=== PATIENT | male | born 1975 | race Caucasian/White ===

== ENCOUNTER 2017-06-28 07:58 | Emergency (ER) | payer SELFPAY ==
[~2017-06-28] VITALS: Ht 160 cm; Wt 79.4 kg
[~2017-06-28 07:58] MED LIST: ALBU90OI INH; ALLEGRA ALLERGY60 MG PO; CYCL10 PO; HYDR1TAB94 PO; NAPR550 PO; Prednisone20 MG PO; TYLENOL PM EX-1 EAC1 PO
[2017-06-28] MEDS ORDERED: CYCL10 PO (08:54)
[2017-06-28] MEDS ORDERED: IBUP800 PO (08:54)
[2017-06-28] MEDS ORDERED: Norco 5-325 Ta1 EACH PO (08:54)
[2017-06-28] MEDS ORDERED: Voltaren100 GM TOP (08:54)
== END 2017-06-28 09:00 | disposition home or self-care (01) ==
LOC: ER 07:58
DX: S16.1XXA Strain of muscle, fascia and tendon at neck level, initial encounter (principal); F17.210 Nicotine dependence, cigarettes, uncomplicated; X58.XXXA Exposure to other specified factors, initial encounter
CPT/HCPCS: 99283

== ENCOUNTER 2017-10-13 14:16 | Emergency (ER) | payer SELFPAY ==
[~2017-10-13] VITALS: Ht 157.5 cm; Wt 77.1 kg
[~2017-10-13 14:16] MED LIST changes: +IBUP800 PO; +Norco 5-325 Ta1 EACH PO; +Voltaren100 GM TOP
[2017-10-13] MEDS ORDERED: ALBU90OI INH (15:16)
[2017-10-13] MEDS ORDERED: Flonase 0.05% N16 GM (15:16)
[2017-10-13] MEDS ORDERED: Alaway10 ML BOTHEYES (15:16)
[2017-10-13] MEDS ORDERED: CLARITIN10 MG PO (15:16)
== END 2017-10-13 15:45 | disposition home or self-care (01) ==
LOC: ER 14:16
DX: J30.9 Allergic rhinitis, unspecified (principal); Z88.8 Allergy status to other drugs, medicaments and biological substances; Z79.899 Other long term (current) drug therapy; F17.210 Nicotine dependence, cigarettes, uncomplicated
CPT/HCPCS: 99283

== ENCOUNTER 2018-05-25 07:49 | Emergency (ER) | payer SELFPAY ==
[~2018-05-25] VITALS: Ht 157.5 cm; Wt 77.1 kg
[~2018-05-25 07:49] MED LIST changes: +Alaway10 ML BOTHEYES; +CLARITIN10 MG PO; +Flonase 0.05% N16 GM
[2018-05-25] MEDS ORDERED: Percocet 5-3251 EACH PO (08:23)
[2018-05-25] MEDS ORDERED: IBUP400 PO (08:23)
[2018-05-25] MEDS ORDERED: Cyclobenzaprine5 MG PO (08:23)
== END 2018-05-25 08:38 | disposition home or self-care (01) ==
LOC: ER 07:49
DX: M54.5 Low back pain (principal); M53.3 Sacrococcygeal disorders, not elsewhere classified; F17.210 Nicotine dependence, cigarettes, uncomplicated
CPT/HCPCS: 99282

== ENCOUNTER 2019-07-26 14:04 | Emergency (ER) | payer SELFPAY ==
[~2019-07-26] VITALS: Ht 157.5 cm; Wt 72.6 kg
[~2019-07-26 14:04] MED LIST changes: +Cyclobenzaprine5 MG PO; +IBUP400 PO; +Percocet 5-3251 EACH PO
[2019-07-26 14:55] LABS: BASOPHILS ABSOLUTE AUTO 0.06 K/mm3 (0.00-0.23); BASOPHILS PERCENT AUTO 1 % (0-2); EOSINOPHILS ABSOLUTE AUTO 0.24 K/mm3 (0.00-0.68); EOSINOPHILS PERCENT AUTO 2 % (0-6); Hematocrit 46.5 % (37.0-53.0); Hemoglobin 15.5 g/dL (13.5-17.5); IMMATURE GRAN ABSOLUTE AUTO 0.03 K/mm3 (0.00-0.10); IMMATURE GRAN PERCENT AUTO 0 % (0-1); LYMPHOCYTES ABSOLUTE AUTO 4.19 K/mm3 (0.84-5.20); LYMPHOCYTES PERCENT AUTO 38 % (21-46); MONOCYTES ABSOLUTE AUTO 0.78 K/mm3 (0.16-1.47); MONOCYTES PERCENT AUTO 7 % (4-13); Mean Corpuscular HGB 29.5 pg (26.0-34.0); Mean Corpuscular HGB Conc 33.3 g/dL (31.5-36.5); Mean Corpuscular Volume 88 fL (80-100); Mean Platelet Volume 12.9 fL (9.1-12.4); NEUTROPHILS ABSOLUTE AUTO 5.68 K/mm3 (1.96-9.15); NEUTROPHILS PERCENT AUTO 52 % (41-73); Platelet Count 187 K/mm3 (150-400); RDW Standard Deviation 42.7 fL (35.1-46.3); Red Blood Cell Count 5.26 M/mm3 (4.30-5.90); White Blood Cell Count 10.98 K/mm3 (4.00-11.30)
[2019-07-26 15:13] LABS: Alanine Aminotransfer (ALT/SGP 34 U/L (12-78); Albumin, Blood 3.8 g/dL (3.4-5.0); Alk Phos 52 U/L (50-136); Anion Gap 5 mmol/L (6-16); Aspartate Aminotrans (AST/SGOT 24 U/L (12-37); Bilirubin, Total 0.4 mg/dL (0.1-1.0); Blood Urea Nitrogen 15 mg/dL (8-24); CO2, Blood 25 mmol/L (21-32); Calcium, Blood 9.1 mg/dL (8.5-10.1); Chloride, Blood 108 mmol/L (98-108); Creatinine, Blood 0.83 mg/dL (0.60-1.20); Globulin, Blood 3.7 g/dL (2.2-4.0); Glomerular Filtration Rate >60 (60-); Glucose, Blood 89 mg/dL (70-99); Potassium, Blood 4.3 mmol/L (3.5-5.5); Sodium, Blood 138 mmol/L (136-145); Total Protein, Blood 7.5 g/dL (6.4-8.2)
[2019-07-26] MEDS ORDERED: Ventolin/Prove6.7 GM INH (16:30)
== END 2019-07-26 16:50 | disposition home or self-care (01) ==
LOC: ER 14:04
PROVIDERS: Physician Assistant
DX: J40 Bronchitis, not specified as acute or chronic (principal); J45.909 Unspecified asthma, uncomplicated; F17.210 Nicotine dependence, cigarettes, uncomplicated
CPT/HCPCS: 36415; 71045; 74176; 80053; 85025; 99284-25

== ENCOUNTER → 2019-07-27 | Outpatient (CLI) | payer SELFPAY ==
[~2019-07-27] MED LIST changes: +Ventolin/Prove6.7 GM INH
[2019-07-27 20:29] LABS: Adenovirus F 40/41 Not Detected (NOT DETECT); Astrovirus Not Detected (NOT DETECT); Campylobacter Sp Not Detected (NOT DETECT); Cryptosporidium Not Detected (NOT DETECT); Cyclospora Cayetanensis Not Detected (NOT DETECT); E. Coli O157 Not Detected (NOT DETECT); Entamoeba Histolytica Not Detected (NOT DETECT); Enteroaggregative E. coli-EAEC Not Detected (NOT DETECT); Enteropathogenic E. coli-EPEC Not Detected (NOT DETECT); Enterotoxigenic E. coli-ETEC Not Detected (NOT DETECT); Giardia Lamblia Not Detected (NOT DETECT); Norovirus GI/GII Not Detected (NOT DETECT); Plesiomonas Shigelloides Not Detected (NOT DETECT); Rotavirus A Not Detected (NOT DETECT); Salmonella Sp Not Detected (NOT DETECT); Sapovirus Not Detected (NOT DETECT); Shiga Toxin-prod E. coli-STEC Not Detected (NOT DETECT); Shigella/Enteroin E. coli-EIEC Not Detected (NOT DETECT); Vibrio Cholerae Not Detected (NOT DETECT); Vibrio Sp Not Detected (NOT DETECT); Yersinia Enterocolitica Not Detected (NOT DETECT)
== END | disposition home or self-care (01) ==
LOC: LAB 14:20 → LAB SHORT 14:20
PROVIDERS: Physician Assistant
DX: R19.7 Diarrhea, unspecified (principal)
CPT/HCPCS: 0097U; 87324

== ENCOUNTER 2020-06-21 15:09 | Emergency (ER) | payer SELFPAY ==
[~2020-06-21] VITALS: Ht 157.5 cm; Wt 77.1 kg
[2020-06-21] MEDS ORDERED: DIPH50 PO (15:17)
== END 2020-06-21 16:03 | disposition home or self-care (01) ==
LOC: ER 15:09
DX: B34.9 Viral infection, unspecified (principal); F17.210 Nicotine dependence, cigarettes, uncomplicated; Z79.899 Other long term (current) drug therapy
CPT/HCPCS: 99284

== ENCOUNTER 2021-04-18 09:38 | Emergency (ER) | payer SELFPAY ==
[~2021-04-18] VITALS: Ht 157.5 cm; Wt 74.8 kg
[~2021-04-18 09:38] MED LIST changes: +DIPH50 PO
[2021-04-18] MEDS ORDERED: ACYC800 PO (12:07)
== END 2021-04-18 12:26 | disposition home or self-care (01) ==
LOC: ER 09:38
DX: N50.89 Other specified disorders of the male genital organs (principal); J45.909 Unspecified asthma, uncomplicated; F17.210 Nicotine dependence, cigarettes, uncomplicated
CPT/HCPCS: 99282

== ENCOUNTER → 2022-09-08 | Outpatient (CLI) | payer OTHER ==
[~2022-09-08] MED LIST changes: +ACYC800 PO
[2022-09-08 12:25] LABS: BASOPHILS ABSOLUTE AUTO 0.04 K/mm3 (0.00-0.23); BASOPHILS PERCENT AUTO 1 % (0-2); EOSINOPHILS ABSOLUTE AUTO 0.11 K/mm3 (0.00-0.68); EOSINOPHILS PERCENT AUTO 1 % (0-6); Hematocrit 50.6 % (37.0-53.0); Hemoglobin 17.7 g/dL (13.5-17.5); IMMATURE GRAN ABSOLUTE AUTO 0.02 K/mm3 (0.00-0.10); IMMATURE GRAN PERCENT AUTO 0 % (0-1); LYMPHOCYTES ABSOLUTE AUTO 2.87 K/mm3 (0.84-5.20); LYMPHOCYTES PERCENT AUTO 33 % (21-46); MONOCYTES ABSOLUTE AUTO 0.49 K/mm3 (0.16-1.47); MONOCYTES PERCENT AUTO 6 % (4-13); Mean Corpuscular HGB 29.4 pg (26.0-34.0); Mean Corpuscular Volume 84 fL (80-100); Mean Platelet Volume 12.4 fL (9.1-12.4); NEUTROPHILS ABSOLUTE AUTO 5.26 K/mm3 (1.96-9.15); NEUTROPHILS PERCENT AUTO 60 % (41-73); Platelet Count 232 K/mm3 (150-400); RDW Coefficient Variation 13.6 % (11.7-14.2); RDW Standard Deviation 41.4 fL (35.1-46.3); Red Blood Cell Count 6.02 M/mm3 (4.30-5.90); White Blood Cell Count 8.79 K/mm3 (4.00-11.30)
[2022-09-08 13:24] LABS: PSA, %Free 23.3 %; PSA, Free 0.312 ng/mL
[2022-09-08 13:35] LABS: Alanine Aminotransfer (ALT/SGP 42 U/L (12-78); Albumin, Blood 4.2 g/dL (3.4-5.0); Alk Phos 61 U/L (50-136); Anion Gap 2 mmol/L (6-16); Aspartate Aminotrans (AST/SGOT 18 U/L (12-37); Bilirubin, Direct <0.1 mg/dL (0.0-0.3); Bilirubin, Indirect Unable to Calculate mg/dL (0.1-0.7); Bilirubin, Total 0.4 mg/dL (0.1-1.0); Blood Urea Nitrogen 10 mg/dL (8-24); Bun/Creatinine Ratio 12.2 (12.0-20.0); CO2, Blood 27 mmol/L (21-32); Chloride, Blood 108 mmol/L (98-108); Creatinine, Blood 0.82 mg/dL (0.60-1.20); Globulin, Blood 4.2 g/dL (2.2-4.0); Glomerular Filtration Rate 108 (60-); Glucose, Blood 104 mg/dL (70-99); Potassium, Blood 4.3 mmol/L (3.5-5.5); Sodium, Blood 137 mmol/L (136-145); Total Protein, Blood 8.4 g/dL (6.4-8.2)
[2022-09-11 07:10] LABS: HBSAG SCREEN Negative (Negative); HCV AB Non Reactive (Non Reactive); HEP A AB, IGM Negative (Negative); HEP B CORE AB, TOT Negative (Negative)
[2022-09-12 19:11] LABS: HEPATITIS C QUANTITATION HCV Not Detected IU/mL (.)
== END | disposition home or self-care (01) ==
LOC: LAB 12:17 → LAB SHORT 12:17
PROVIDERS: Family Medicine
DX: R10.9 Unspecified abdominal pain (principal); B19.20 Unspecified viral hepatitis C without hepatic coma; R33.9 Retention of urine, unspecified
CPT/HCPCS: 80053; 82248; 83690; 84153; 84154; 85025; 86704; 86708; 86803; 87340; 87522

== ENCOUNTER 2022-12-13 11:48 | Day surgery (SDC) | payer OTHER ==
[~2022-12-13] VITALS: Ht 157.5 cm; Wt 75.5 kg
[2022-12-13] MEDS ORDERED: CELE100 (12:05)
[2022-12-13] MEDS ORDERED: LOSA25 (12:05)
[2022-12-13] MEDS ORDERED: DULO30 (12:05)
[2022-12-13] MEDS ORDERED: TIZA4 (12:05)
[2022-12-13] MEDS ORDERED: PANT40 (12:05)
[2022-12-13 14:17] VITALS: BP 110/82
--- NOTE | 2022-12-13 14:23 | NUR ---
12/13/22 1423 PARAMJIT CLARKE PT WOKE UP FROM PROCEDURE COUGHING AND CLEARING SECRETIONS ON HIS OWN. IN STEP DOWN REQUESTED AN INHALER. PT O2 SATS 99% RA LUNG SOUNDS HAD EXSPIRATORY WHEEZES- MILD. PT IS AN EVERYDAY 1 PK CIG SMOKER. STATES THAT HE WILL USE HIS INHALER IN THE CAR RATHER THAT WAITING FOR AN ORDER FROM DR JOHNSON FOR A UPDRAFT [place].
== END 2022-12-13 14:08 | disposition home or self-care (01) ==
LOC: ORSCSDS 11:48
PROVIDERS: Surgery
PROC: 0DB98ZX Excision of Duodenum, Via Natural or Artificial Opening Endoscopic, Diagnostic (ICD-10-PCS; principal; 2022-12-13 13:00)
PROC: 0DBH8ZX Excision of Cecum, Via Natural or Artificial Opening Endoscopic, Diagnostic (ICD-10-PCS; principal; 2022-12-13 13:00)
PROC: 0DB48ZX Excision of Esophagogastric Junction, Via Natural or Artificial Opening Endoscopic, Diagnostic (ICD-10-PCS; principal; 2022-12-13 13:00)
PROC: 0DBM8ZX Excision of Descending Colon, Via Natural or Artificial Opening Endoscopic, Diagnostic (ICD-10-PCS; principal; 2022-12-13 13:00)
PROC: 0DB78ZX Excision of Stomach, Pylorus, Via Natural or Artificial Opening Endoscopic, Diagnostic (ICD-10-PCS; principal; 2022-12-13 13:00)
PROC: 0DBE8ZX Excision of Large Intestine, Via Natural or Artificial Opening Endoscopic, Diagnostic (ICD-10-PCS; principal; 2022-12-13 13:00)
PROC: 0DBP8ZX Excision of Rectum, Via Natural or Artificial Opening Endoscopic, Diagnostic (ICD-10-PCS; principal; 2022-12-13 13:00)
DX: K92.0 Hematemesis (principal); K92.1 Melena; K29.70 Gastritis, unspecified, without bleeding; D12.0 Benign neoplasm of cecum; D12.4 Benign neoplasm of descending colon; D12.8 Benign neoplasm of rectum; K64.4 Residual hemorrhoidal skin tags; K64.1 Second degree hemorrhoids; F17.210 Nicotine dependence, cigarettes, uncomplicated; I10 Essential (primary) hypertension; J45.909 Unspecified asthma, uncomplicated; K21.9 Gastro-esophageal reflux disease without esophagitis; Z79.899 Other long term (current) drug therapy
CPT/HCPCS: 82947; 88305; 88342; J0461; J2001; J2405; J2704; J7120; Q9968